=== PATIENT | female | born 2005 | race Caucasian/White ===

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

== ENCOUNTER 2025-01-25 09:32 | Emergency (ER) | payer BC, OTHER, SELFPAY ==
--- NOTE | ~2025-01-25 | XR_ITS ---
EXAMINATION: XR hand RT min 3V DATE: 01/25/2025 09:54 INDICATION: Right thumb hyperextension injury with pain and swelling TECHNIQUE: Posteroanterior, oblique and lateral views of the right hand were obtained. COMPARISON: None. FINDINGS: Alignment is normal. No fracture. Joint spaces are normal. Soft tissues are unremarkable. IMPRESSION: 1. Negative right hand radiographs. Reviewed, dictated and finalized at location A.
--- OUTSIDE RECORDS SUMMARY | 2025-01-25 09:34 | XMS_ITS | Clinical Summary ---
Author Organization [facility] Address [address] [place] [address] Care Team Providers Care Mortician Investigator Name Role Phone Armando Armijo MD Primary Care Provider Allergies No known active allergies Medications loratadine (CLARITIN) 10 mg tablet 03/25/2020 Active Blisovi Fe 07/01, , 1 mg-20 mcg (21)/75 mg (7) per tablet 01/03/2022 Active cefdinir (OMNICEF) 300 mg capsule Take 1 capsule (300 mg total) by mouth 2 (two) times a day 14 capsule 12/24/2022 Active Active Problems No known active problems Surgical History Surgery Date Site/Laterality Comments NO PAST SURGERIES Medical History Medical History Date Comments Known health problems: none Family History Medical History Relation Name Comments Epilepsy Father Diabetes Maternal Grandmother Relation Name Status Comments Father Maternal Grandmother Social History Tobacco Use Types Packs/Day Years Used Date Smoking Tobacco: Every Day Vaping Alcohol Use Standard Drinks/Week Comments Never 0 (1 standard drink = 0.6 oz pur e alcohol) Personal Safety Answer Date Recorded Getting School Help Needed Not on file 02/15 Comments No Sex and Gender Information Value Date Recorded Sex Assigned at Not on file 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 Gender Identity Not on file Sexual Orientation Not on file Obstetrics History Last Filed Vital Signs Vital Sign Reading Time Taken Comments Blood Pressure 115/70 12/24/2022 2:00 AM CDT Pulse 103 12/24/2022 2:00 AM CDT Temperature 36.9 C (98.5 F) 12/23/2022 11:57 PM CDT Respiratory Rate 20 12/24/2022 2:00 AM CDT Oxygen Saturation 100% 12/24/2022 2:00 AM CDT Inhaled Oxygen Concentration - - Weight 60.5 kg (133 lb 6.1 oz) 01/13/2022 2:01 P M CDT Height 154.9 cm (5' 1) 10/04/2021 9:52 PM CDT Body Mass Index - - Plan of Treatment Health Maintenance Due Date Last Done Comments Depression Screening 2004 Hepatitis C Screening 2004 Pneumococcal vaccine <65 (1 of 1 - PPSV23, PCV20, or PCV21) 2010 09/08/2005, 04/11/2005, 02/08/2005, Additional history exists Regular Well Visit/Exam 18-64 2022 Influenza Vaccine (#1) 2025 7, 03/08/2016, 09/09/2011 DTaP/Tdap/Td Vaccine (7 - Td or Tdap) 11/26/2025 11/27/2015, 03/06/2009, 03/13/2006, Additional history exists Varicella Vaccines Completed 03/06/2009, 09/08/2005 Hepatitis B Screening Completed 09/13/2011 , 02/08/2005, 2004 HPV Vaccines Completed 05/30/2016, 01/10, 11/27/2015 Meningococcal Vaccine Completed 02/01/2021, 016 Meningococcal B Vaccine Completed 03/05/2021, 02/01 Insurance [facility] Care Teams Mortician Investigator Relationship Specialty Start Date End Date Armando Armijo MD PCP - General 10/15/16
--- OUTSIDE RECORDS SUMMARY | 2025-01-25 09:34 | XMS_ITS | Clinical Summary ---
Author Organization [facility] Address [address] [place] [address] Phone Care Team Providers Care Reducing Salon Attendant Name Role Phone Armando Armijo MD Primary Care Provider Medications neomycin-polymyx in-hydrocortison e (CORTISPORIN) [id number] 3 Drops in left ear 4 times daily. 10 mL 0 02/02/2016 Active Social History Tobacco Use Types Packs/Day Years Used Date Smoking Tobacco: Never Assessed Comments Unknown Sex and Gender Information Value Date Recorded Sex Assigned at Not on file Legal Sex Female 11:51 PM CDT Gender Identity Not on file Sexual Orientation Not on file Last Filed Vital Signs Vital Sign Reading Time Taken Comments Blood Pressure 106/71 02/02/2016 4:07 AM CDT Pulse 129 02/02/2016 4:07 AM CDT Temperature 37.7 C (99.8 F) 02/02/2016 4:07 AM CDT Respiratory Rate 20 02/02/2016 4:07 AM CDT Oxygen Saturation 100% 02/02/2016 4:07 AM CDT Inhaled Oxygen Concentration - - Weight 38.6 kg (85 lb) 02/02/2016 4:07 AM CDT Height - - Body Mass Index - - Plan of Treatment Health Maintenance Due Date Last Done Comments Hepatitis C Virus (HCV) Screening 2004 Meningococcal B Immunization (1 of 2 - Standard) 2020 SARS-COV-2 Immunization ( season) 2024 Influenza Immunization (#1) 02/10/202505/12, 03/08/2016, 09/09/2011 Respiratory Syncytial Virus (RSV) Immunization (Adult) (1 - 1-dose 75+ series) 09/03/2079 Pneumococcal Immunization Combined Aged Out 09/08/2005, 04/11/2005, 02/08/2005, Additional history exists No longer eligible based on patient's age to complete this topic Hepatitis A Immunization Discontinued 12/18/2006, 07/2005 Measles Mumps Rubella (MMR) Immunization Discontinued 03/06/2009, 09/08/2005 Polio (IPV) Immunization Discontinued 009, 04/11/2005, 02/08/2005, Additional history exists Varicella Immunization Discontinued 03/06/2009, 2005 Hepatitis B Immunization Completed 012, 02/08/2005, 2004 DTaP/Tdap/Td Immunization Discontinued 2015, 03/06/2009, 03/13/2006, Additional history exists Meningococcal Immunization (ACWY) Aged Out 11/27/2015 No longer eligible based on patient's age to complete this topic TdaP Immunization Completed 11/27/2015 Human Papillomavirus (HPV) Immunization Completed 05/30/2016, 01/28/2016, 11/27/2015 Rotavirus Immunization Aged Out No lo nger eligible based on patient's age to complete this topic Care Teams Reducing Salon Attendant Relationship Specialty Start Date End Date Armando Armijo MD [address] [place] [address] PCP - General Pediatrics 02/02/16
[2025-01-25 09:45] VITALS: BP 126/75; PULSE 88; RESP 16; TEMP 37.1; O2SAT 100
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
== END 2025-01-25 10:22 | disposition home or self-care (01) ==
PROVIDERS: Emergency Provider Nurse Practitioner Family
DX: M79.644 Pain in right finger(s) (principal); F12.90 Cannabis use, unspecified, uncomplicated
CPT/HCPCS: 73130; 99213; G0463